=== PATIENT | female | born 1985 | race American Indian/Alaskan Native ===

== ENCOUNTER 2016-12-05 18:42 | Emergency (ER) | payer SELFPAY ==
[2016-12-05 18:53] VITALS: BP 154/91
[2016-12-05] MEDS ORDERED: TORADOL IM ONE (21:42)
--- NOTE | 2016-12-05 21:48 | Emergency Department Report ---
ED Lower Extremity HPI - General Chief Complaint: Extremity Injury, Lower Stated Complaint: PAIN/HIP PAIN Time Seen by Provider: 12/05/16 21:36 Source: patient Mode of arrival: Ambulatory Limitations: No Limitations - History of Present Illness Complaint: hip injury, other (pain no injury no fall injury or trauma ) -: Sudden, week(s) Time: 02:00 Injury: Hip: Left Type of Injury: other (none) Place: home Severity: moderate Severity scale (0 -10): 4 Improves With: nothing Worsens With: movement, palpation Context: other (none) Other Symptoms: loss of consciousness Associated Symptoms: ambulatory. denies: snap/pop sensation, swelling, numbness , tingling Treatments Prior to Arrival: other (none) - Related Data Previous Rx's Medication Instructions Recorded Last Taken Type Docusate Sodium [Colace] 100 mg PO BID PRN #60 capsule 08/27/16 Unknown Rx Ferrous Sulfate [Feosol 325 MG tab] 325 mg PO BID #60 tablet 08/27/16 Unknown Rx Cyclobenzaprine [Flexeril] 10 mg PO TID PRN #30 tablet 12/05/16 Unknown Rx Naproxen [Naprosyn TAB] 500 mg PO BID PRN #30 tablet 12/05/16 Unknown Rx Allergies Allergy/AdvReac Type Severity Reaction Status Date / Time No Known Allergies Allergy Unverified 08/26/16 13:10 ED Review of Systems ROS: Stated complaint: PAIN/HIP PAIN Other details as noted in HPI Constitutional: denies: chills, fever Eyes: denies: eye pain, eye discharge, vision change ENT: denies: ear pain, throat pain Respiratory: denies: cough, shortness of breath, wheezing Cardiovascular: denies: chest pain, palpitations Endocrine: no symptoms reported Gastrointestinal: denies: abdominal pain, nausea, diarrhea Genitourinary: denies: urgency, dysuria, discharge Musculoskeletal: arthralgia, myalgia. denies: back pain, joint swelling Skin: denies: rash, lesions Neurological: denies: headache, weakness, numbness, paresthesias, abnormal gait Psychiatric: anxiety. denies: depression, auditory hallucinations, visual hallucinations, homicidal thoughts, suicidal thoughts Hematological/Lymphatic: denies: easy bleeding, easy bruising ED Past Medical Hx - Past Medical History Previous Medical History?: No Hx Sickle Cell Disease: No Hx HIV: No Additional medical history: Eczema - Surgical History Past Surgical History?: Yes Additional Surgical History: TONSILLECTOMY - Social History Smoking Status: Never Smoker Substance Use Type: Non Opiate Pain - Medications Home Medications: Home Medications Medication Instructions Recorded Confirmed Last Taken Type Docusate Sodium [Colace] 100 mg PO BID PRN #60 capsule 08/27/16 Unknown Rx Ferrous Sulfate [Feosol 325 MG tab] 325 mg PO BID #60 tablet 08/27/16 Unknown Rx Cyclobenzaprine [Flexeril] 10 mg PO TID PRN #30 tablet 12/05/16 Unknown Rx Naproxen [Naprosyn TAB] 500 mg PO BID PRN #30 tablet 12/05/16 Unknown Rx ED Physical Exam - General Limitations: No Limitations General appearance: alert, in no apparent distress - Head Head exam: Present: atraumatic, normocephalic - Eye Eye exam: Present: normal appearance - ENT ENT exam: Present: mucous membranes moist - Neck Neck exam: Present: normal inspection - Respiratory Respiratory exam: Present: normal lung sounds bilaterally. Absent: respiratory distress - Cardiovascular Cardiovascular Exam: Present: regular rate, normal rhythm. Absent: systolic murmur, diastolic murmur, rubs, gallop - GI/Abdominal GI/Abdominal exam: Present: soft, normal bowel sounds - Rectal Rectal exam: Present: deferred - Expanded Lower Extremity Exam Left Hip exam: Present: full ROM, tenderness (left lateral hip to deep palpation ), external rotation (without pain ), internal rotation. Absent: swelling, abrasion, laceration, ecchymosis, deformity, crepidus, dislocation, erythema, shortening, pelvic stability Upper Leg exam: Present: normal inspection, full ROM. Absent: tenderness, swelling, abrasion, laceration, ecchymosis, deformity, crepidus, dislocation, erythema Knee exam: Present: normal inspection Lower Leg exam: Present: normal inspection Ankle exam: Present: normal inspection Foot/Toe exam: Present: normal inspection Neuro vascular tendon exam: Present: no vascular compromise. Absent: pulse deficit, abnormal cap refill, motor deficit, sensory deficit, tendon deficit, extremity cold to touch, pallor Gait: Positive: observed and normal - Back Exam Back exam: Present: normal inspection, full ROM. Absent: tenderness, CVA tenderness (R), CVA tenderness (L), muscle spasm, paraspinal tenderness, vertebral tenderness - Neurological Exam Neurological exam: Present: alert, oriented X3 - Psychiatric Psychiatric exam: Present: normal affect, normal mood, anxious. Absent: depressed, agitated, homicidal ideation, suicidal ideation - Skin Skin exam: Present: warm, dry, intact, normal color. Absent: rash ED Course Vital Signs 12/05/16 18:49 Temperature 98.7 F Pulse Rate 117 H Respiratory 20 Rate Blood Pressure 154/91 O2 Sat by Pulse 100 Oximetry ED Lower Extremity MDM - Medical Decision Making pt is a 31 y/o aaf with hx of obesity and stated htn, pt is not taking otc nsaids or pain relievers pt endorse acute on chronic left lateral hip pain x 2 weeks pain described as 4/10 aching exacerbated by prolong standing and walking pt denies weakness no numbness no decreased rom, pt denies fall injury or trauma , exam as noted , no weaknes no numbness no tingling no saddle numbness no decrease or loss in bladder or bowel control, no dysuria no urgency no no frequency no fever no chills , there is no deformity pt is ambulatory gait is steady at this time, pt endorses Im stressed out about trying to find work, pt given nsaid Im, plan naproxen bid prn pain , flexeril prn spams , hip exercises as directed , pt will follow up with primary care if problem persists Critical care attestation.: If time is entered above; I have spent that time in minutes in the direct care of this critically ill patient, excluding procedure time. ED Disposition Clinical Impression: Musculoskeletal pain of left lower extremity, Hip pain, left Disposition: TO HOME OR SELFCARE Is pt being admited?: No Does the pt Need Aspirin: No Condition: Good Instructions: Arthralgia (ED) Additional Instructions: hip exercises as directed Prescriptions: Cyclobenzaprine [Flexeril] 10 mg PO TID PRN #30 tablet PRN Reason: Muscle Spasm Naproxen [Naprosyn TAB] 500 mg PO BID PRN #30 tablet PRN Reason: Pain Forms: Work/School Release Form(ED) Time of Disposition: 21:54
== END 2016-12-05 22:28 | disposition home or self-care (01) ==
LOC: ED 18:42
DX: M25.552 Pain in left hip (principal)
CPT/HCPCS: 96372; 99282; J1885

== ENCOUNTER 2017-02-19 20:17 | Emergency (ER) | payer SELFPAY ==
[2017-02-19] MEDS ORDERED: CATAPRES PO ONE (20:59)
[2017-02-19] MEDS ORDERED: CATAPRES ONE (21:01)
[2017-02-19 22:06] VITALS: BP 156/100
--- NOTE | 2017-02-20 01:10 | Emergency Department Report ---
ED Upper Extremity Inj HPI - General Chief Complaint: Extremity Injury, Upper Stated Complaint: PAIN IN HANDS Time Seen by Provider: 02/20/17 00:59 Source: patient Mode of arrival: Ambulatory Limitations: No Limitations - History of Present Illness Initial Comments: This is a 31-year-old female nontoxic, well nourished in appearance, no acute signs of distress presents to the ED complaining of bilateral hand pain and stiffness intermittently 3 months. Patient stated she was recently diagnosed with arthritis of bilateral hands has been treated with naproxen and Flexeril and stated since has subsided but has recurred today. Patient denies any trauma , numbness, tingling, swelling, chest pain, shortness of breath, fever, chills, headache, stiff neck, nausea or vomiting. He denies any allergies or past medical history. Patient stated she does not follow up with a primary care doctor about her blood pressure but states she is aware of her high blood pressure. Pt deneis headache, blurry vision, drooling, visual changes, dizziness. MD Complaint: Injury to:: left, right, hand -: Gradual, month(s) (3) Other Injuries: none Severity scale (0 -10): 7 Improves With: none Worsens With: none Associated Symptoms: denies other symptoms. denies: weakness, numbness, neck pain, suspects foreign body, nausea/vomiting, heard/felt popping sensat - Related Data Previous Rx's Medication Instructions Recorded Last Taken Type Docusate Sodium [Colace] 100 mg PO BID PRN #60 capsule 08/27/16 Unknown Rx Ferrous Sulfate [Feosol 325 MG tab] 325 mg PO BID #60 tablet 08/27/16 Unknown Rx Cyclobenzaprine [Flexeril] 10 mg PO TID PRN #30 tablet 12/05/16 Unknown Rx Naproxen [Naprosyn TAB] 500 mg PO BID PRN #30 tablet 12/05/16 Unknown Rx Cyclobenzaprine [Flexeril] 10 mg PO TID PRN #15 tablet 02/20/17 Unknown Rx Hydrochlorothiazide [HCTZ] 25 mg PO QDAY #30 tablet 02/20/17 Unknown Rx Naproxen [Naprosyn TAB] 500 mg PO BID #30 tablet 02/20/17 Unknown Rx Allergies Allergy/AdvReac Type Severity Reaction Status Date / Time No Known Allergies Allergy Unverified 08/26/16 13:10 ED Review of Systems ROS: Stated complaint: PAIN IN HANDS Other details as noted in HPI Constitutional: denies: chills, fever Eyes: denies: eye pain, eye discharge, vision change ENT: denies: ear pain, throat pain Respiratory: denies: cough, shortness of breath, wheezing Cardiovascular: denies: chest pain, palpitations Endocrine: no symptoms reported Gastrointestinal: denies: abdominal pain, nausea, diarrhea Genitourinary: denies: urgency, dysuria, discharge Musculoskeletal: denies: back pain, joint swelling, arthralgia Skin: denies: rash, lesions Neurological: denies: headache, weakness, paresthesias Psychiatric: denies: anxiety, depression Hematological/Lymphatic: denies: easy bleeding, easy bruising ED Past Medical Hx - Past Medical History Hx Sickle Cell Disease: No Hx Arthritis: Yes (HANDS) Hx HIV: No Additional medical history: Eczema - Surgical History Additional Surgical History: TONSILLECTOMY - Social History Smoking Status: Never Smoker Substance Use Type: None, Alcohol - Medications Home Medications: Home Medications Medication Instructions Recorded Confirmed Last Taken Type Docusate Sodium [Colace] 100 mg PO BID PRN #60 capsule 08/27/16 Unknown Rx Ferrous Sulfate [Feosol 325 MG tab] 325 mg PO BID #60 tablet 08/27/16 Unknown Rx Cyclobenzaprine [Flexeril] 10 mg PO TID PRN #30 tablet 12/05/16 Unknown Rx Naproxen [Naprosyn TAB] 500 mg PO BID PRN #30 tablet 12/05/16 Unknown Rx Cyclobenzaprine [Flexeril] 10 mg PO TID PRN #15 tablet 02/20/17 Unknown Rx Hydrochlorothiazide [HCTZ] 25 mg PO QDAY #30 tablet 02/20/17 Unknown Rx Naproxen [Naprosyn TAB] 500 mg PO BID #30 tablet 02/20/17 Unknown Rx ED Physical Exam - General Limitations: No Limitations General appearance: alert, in no apparent distress - Head Head exam: Present: atraumatic, normocephalic, normal inspection - Eye Eye exam: Present: normal appearance, PERRL, EOMI. Absent: scleral icterus, conjunctival injection, nystagmus, periorbital swelling, periorbital tenderness Pupils: Present: normal accommodation - ENT ENT exam: Present: normal exam, normal orophraynx, mucous membranes moist, TM's normal bilaterally, normal external ear exam - Neck Neck exam: Present: normal inspection, full ROM. Absent: tenderness, meningismus, lymphadenopathy, thyromegaly - Respiratory Respiratory exam: Present: normal lung sounds bilaterally. Absent: respiratory distress, wheezes, rales, rhonchi, stridor, chest wall tenderness, accessory muscle use, decreased breath sounds, prolonged expiratory - Cardiovascular Cardiovascular Exam: Present: regular rate, normal rhythm. Absent: systolic murmur, diastolic murmur, rubs, gallop - GI/Abdominal GI/Abdominal exam: Present: soft, normal bowel sounds. Absent: distended, tenderness, guarding, rebound, rigid, diminished bowel sounds - Rectal Rectal exam: Present: deferred - Extremities Exam Extremities exam: Present: normal inspection, full ROM, normal capillary refill. Absent: tenderness, pedal edema, joint swelling, calf tenderness - Expanded Upper Extremity Exam Left General: Present: normal inspection (bilateral examination) Shoulder Exam: Present: normal inspection (bilateral examination), full ROM Upper Arm exam: Present: normal inspection (bilateral examination), full ROM Elbow exam: Present: normal inspection (bilateral examination), full ROM Forearm Wrist exam: Present: normal inspection (bilateral examination), full ROM Hand Wrist exam: Present: normal inspection (bilateral examination), full ROM, tenderness, other (stiffness). Absent: swelling, abrasion, laceration, ecchymosis, deformity, crepidus, dislocation, erythema, amputation, nail avulsion, subungual hematoma Neuro motor exam: Present: wrist extension intact, thumb opposition intact, thumb IP flexion intact, thumb adduction intact, fingers 2-5 abduction intact Neurosensory exam: Present: 2-point discrimination, radial nerve intact, ulnar nerve intact, median nerve intact Vascular: Present: vascular compromise, normal capillary refill, radial pulse, brachial pulse, ulnar pulse - Back Exam Back exam: Present: normal inspection, full ROM. Absent: tenderness, CVA tenderness (R), CVA tenderness (L), muscle spasm, paraspinal tenderness, vertebral tenderness, rash noted - Neurological Exam Neurological exam: Present: alert, oriented X3, CN II-XII intact, normal gait, reflexes normal - Psychiatric Psychiatric exam: Present: normal affect, normal mood - Skin Skin exam: Present: warm, dry, intact, normal color. Absent: rash ED Course Vital Signs 02/19/17 02/19/17 02/19/17 20:51 21:00 22:04 Temperature 97.8 F Pulse Rate 104 H 104 H 94 H Respiratory 18 18 Rate Blood Pressure 195/125 195/125 156/100 O2 Sat by Pulse 100 100 Oximetry - Reevaluation(s) Reevaluation #1: 02/20/17 01:12 Patient is speaking full sentences with no signs of distress. Reevaluation #2: 02/20/17 01:12 Blood pressure decreased post treatment in the ED ED Medical Decision Making - Medical Decision Making 31y/o female presents with bilateral arthritic pain. Patient is stable. Patient examined myself. Patient received Catapres 0.1 mg for hypertension which decreased in the ED. Patient was educated on low-sodium diet. Patient notified follow-up with her primary care doctor in 24 hours for her elevated blood pressure or symptoms such as headache, blurred vision, or any abnormal symptoms return to emergency room as soon as possible. I will start patient with a HCTZ 25 mg. Patient received ibuprofen 800 mg by mouth in the ED. patient with also discharged with naproxen and Flexeril to the stating that symptoms have significantly subsided. Patient also notified to keep a diary log of blood pressure. At time time of discharge, the patient does not seem toxic or ill in appearance. No acute signs of distress noted. Patient agrees to discharge treatment plan of care. No further questions noted by the patient. Patient was notified to follow up with orthopedic doctor in 3-5 days. Critical care attestation.: If time is entered above; I have spent that time in minutes in the direct care of this critically ill patient, excluding procedure time. ED Disposition Clinical Impression: Arthritis Hypertension Qualifiers: Hypertension type: unspecified Qualified Code(s): I10 - Essential (primary) hypertension Arthralgia Qualifiers: Joint pain location: hand Laterality: bilateral Qualified Code(s): M25.541 - Pain in joints of right hand Disposition: DC-01 TO HOME OR SELFCARE Is pt being admited?: No Does the pt Need Aspirin: No Condition: Stable Instructions: Naproxen (By mouth), Cyclobenzaprine (By mouth), Low Sodium Diet (ED), Hypertension (ED) Additional Instructions: follow-up with a primary care doctor in 24 hours for her elevated blood pressure or symptoms such as headache, blurred vision, or any abnormal symptoms return to emergency room as soon as possible. Follow-up with a orthopedic doctor in 3-5 days. Keep a daily diary of blood pressure. Take naproxen and Flexeril as prescribed. Do not operate heavy machinery while taking Flexeril due to sedation Prescriptions: Cyclobenzaprine [Flexeril] 10 mg PO TID PRN #15 tablet PRN Reason: Muscle Spasm Hydrochlorothiazide [HCTZ] 25 mg PO QDAY #30 tablet Naproxen [Naprosyn TAB] 500 mg PO BID #30 tablet Referrals: LA BAILEY MD [Staff Physician] - 3-5 Days [facility] [Outside] - 3-5 Days [facility] [Outside] - 3-5 Days PRIMARY CAREMD [Primary Care Provider] - 24 Hours RODRIGUE SLATER MD [Staff Physician] - 24 Hours Forms: Work/School Release Form(ED)
[2017-02-20] MEDS ORDERED: MOTRIN PO ONE (01:12)
== END 2017-02-20 01:57 | disposition home or self-care (01) ==
LOC: ED 20:17
DX: M25.541 Pain in joints of right hand (principal); M19.90 Unspecified osteoarthritis, unspecified site; I10 Essential (primary) hypertension; Z90.89 Acquired absence of other organs
CPT/HCPCS: 99282

== ENCOUNTER 2017-06-18 19:34 | Emergency (ER) | payer OTHER ==
[2017-06-18 20:57] VITALS: BP 145/96
[2017-06-18 21:40] LABS: Basophils # (Auto) 0.1 K/mm3 (0.0-0.1); Basophils % (Auto) 0.4 % (0.0-1.8); Eosinophils # (Auto) 1.1 K/mm3 (0.0-0.4); Eosinophils % (Auto) 6.2 % (0.0-4.3); Hematocrit 26.9 % (30.3-42.9); Lymphocytes # (Auto) 2.6 K/mm3 (1.2-5.4); Lymphocytes % (Auto) 14.6 % (13.4-35.0); Mean Corpuscular HGB Conc 30 % (30-34); Monocytes # (Auto) 0.8 K/mm3 (0.0-0.8); Monocytes % (Auto) 4.7 % (0.0-7.3); Platelet Count 340 K/mm3 (140-440); Red Blood Count 4.25 M/mm3 (3.65-5.03)
[2017-06-18 21:42] LABS: Mean Corpuscular Hemoglobin 19 pg (28-32); Mean Corpuscular Volume 63 fl (79-97); Red Cell Distribution Width 22.4 % (13.2-15.2)
[2017-06-19 00:43] LABS: Bacteria,Urine 1+ /HPF (Negative); Bilirubin,Urine NEG (Negative); Blood,Urine LG (Negative); Color,Urine Red (Yellow); Mucus,Urine FEW /HPF; Nitrite,Urine NEG (Negative); Urobilinogen,Urine < 2.0 mg/dL (<2.0)
[2017-06-19 00:45] LABS: RBC,Urine > 182.0 /HPF (0.0-6.0)
== END 2017-06-19 04:30 | disposition left against medical advice (07) ==
LOC: ED 19:34
DX: Z53.21 Procedure and treatment not carried out due to patient leaving prior to being seen by health care provider (principal)
CPT/HCPCS: 36415; 81001; 85025; 86850; 86900; 86901

== ENCOUNTER 2017-06-19 20:47 | Emergency (ER) | payer OTHER ==
[2017-06-19 22:22] LABS: Mean Corpuscular HGB Conc 29 % (30-34); Platelet Count 362 K/mm3 (140-440); Red Blood Count 4.37 M/mm3 (3.65-5.03)
[2017-06-19 22:24] LABS: Hematocrit 27.7 % (30.3-42.9); Hemoglobin 8.1 gm/dl (10.1-14.3); Mean Corpuscular Hemoglobin 19 pg (28-32); Mean Corpuscular Volume 63 fl (79-97); Red Cell Distribution Width 22.8 % (13.2-15.2)
--- NOTE | 2017-06-20 06:35 | Emergency Department Report ---
HPI - General Chief Complaint: Vaginal Bleeding Time Seen by Provider: 06/20/17 06:12 - HPI HPI: 31-year-old female presents to the emergency department with complaint of a one-month history of vaginal bleeding. She has some lower abdominal and/or pelvic discomfort. The patient says that she has a history of irregular menstrual cycles. Sometimes she will miss one and then other times it will last for a month or so. Currently she says it is a moderate amount of bleeding and that she goes through 1.5 packs of pads a week. She does not have an CASE PICKER. Patient does have a history of heavy vaginal bleeding leading to anemia and transfusion in the past. No recent travel or sick contacts at home. She denies any dysuria, vaginal discharge, back pain, fever, nausea or vomiting. She has not taken anything for her symptoms prior to presentation. ED Past Medical Hx - Past Medical History Hx Sickle Cell Disease: No Hx Arthritis: Yes (HANDS) Hx HIV: No Additional medical history: Eczema - Surgical History Additional Surgical History: TONSILLECTOMY - Social History Smoking Status: Current Every Day Smoker Substance Use Type: None - Medications Home Medications: Home Medications Medication Instructions Recorded Confirmed Last Taken Type Docusate Sodium [Colace] 100 mg PO BID PRN #60 capsule 08/27/16 Unknown Rx Cyclobenzaprine [Flexeril] 10 mg PO TID PRN #30 tablet 12/05/16 Unknown Rx Naproxen [Naprosyn TAB] 500 mg PO BID PRN #30 tablet 12/05/16 Unknown Rx Cyclobenzaprine [Flexeril] 10 mg PO TID PRN #15 tablet 02/20/17 Unknown Rx Hydrochlorothiazide [HCTZ] 25 mg PO QDAY #30 tablet 02/20/17 Unknown Rx Naproxen [Naprosyn TAB] 500 mg PO BID #30 tablet 02/20/17 Unknown Rx Ferrous Sulfate [Feosol 325 MG tab] 325 mg PO BID #60 tablet 06/20/17 Unknown Rx traMADol [Ultram 50 MG tab] 50 mg PO Q6HR PRN #10 tablet 06/20/17 Unknown Rx ED Review of Systems ROS: Stated complaint: VAG BLEED Other details as noted in HPI Comment: All other systems reviewed and negative Constitutional: denies: chills, fever Eyes: denies: eye pain, eye discharge, vision change ENT: denies: ear pain, throat pain Respiratory: denies: cough, shortness of breath, wheezing Cardiovascular: denies: chest pain, palpitations Gastrointestinal: abdominal pain. denies: nausea, vomiting Genitourinary: other (vaginal bleeding). denies: urgency, dysuria, discharge Musculoskeletal: denies: back pain, joint swelling, arthralgia Skin: denies: rash, lesions Neurological: denies: headache, weakness, paresthesias Physical Exam - Physical Exam Vital Signs: Vital Signs 06/19/17 06/20/17 06/20/17 21:13 03:34 06:17 Temperature 98.2 F 98.6 F 98.4 F Pulse Rate 94 H 86 88 Respiratory 16 16 16 Rate Blood Pressure 169/100 196/113 Blood Pressure 154/97 [Right] O2 Sat by Pulse 99 99 97 Oximetry Physical Exam: GENERAL: The patient is well-developed well-nourished. HENT: Normocephalic. Atraumatic. Patient has moist mucous membranes. EYES: Extraocular motions are intact. Pupils equal reactive to light bilaterally. NECK: Supple. Trachea is midline. CHEST/LUNGS: Clear to auscultation. There is no respiratory distress noted. HEART/CARDIOVASCULAR: Regular. There is no tachycardia. There is no murmur. ABDOMEN: Abdomen is soft, nontender. Patient has normal bowel sounds. There is no abdominal distention. SKIN: Skin is warm and dry. NEURO: The patient is awake, alert, and oriented. The patient is cooperative. The patient has no focal neurologic deficits. The patient has normal speech. MUSCULOSKELETAL: There is no tenderness or deformity. There is no limitation range of motion. There is no evidence of acute injury. ED Course Vital Signs 06/19/17 06/20/17 06/20/17 21:13 03:34 06:17 Temperature 98.2 F 98.6 F 98.4 F Pulse Rate 94 H 86 88 Respiratory 16 16 16 Rate Blood Pressure 169/100 196/113 Blood Pressure 154/97 [Right] O2 Sat by Pulse 99 99 97 Oximetry ED Medical Decision Making - Lab Data Result diagrams: 06/19/17 21:41 06/20/17 07:33 - Radiology Data Radiology results: report reviewed, image reviewed interpreted by me: Abdominal x-ray shows nonspecific nonobstructive bowel gas. ULTRASOUND PELVIC DUPLEX DOPPLER COMPLETE ULTRASOUND TRANSVAGINAL HISTORY: Pain, dysfunctional vaginal bleeding. COMPARISON: 08/26/16. TECHNIQUE: Transabdominal and transvaginal ultrasound with color doppler interrogation. FINDINGS: Uterus: The uterus is anteverted. The uterus measures 8.2 x 4.2 x 5.5 cm. No uterine fibroid disease is detected. The cervix is unremarkable. Endometrium: The endometrium remains mildly thickened and heterogeneous measuring 16.2 mm in thickness. The junctional zone appears prominent. There is no obvious endometrial fluid, cystic change or mass. This could be a manifestation of endometrial hyperplasia or adenomyosis. Right ovary: 3.3 x 2.5 x 2.1 cm. No focal abnormality. Left ovary: 3.1 x 3.2 x 2.1 cm. No focal abnormality. No pelvic fluid or mass is identified. Spectral Doppler waveforms demonstrate arterial flow to both ovaries. IMPRESSION: Slightly thickened and complex endometrium as outlined above. Consider endometrial hyperplasia or adenomyosis. Transcribed By: TTR Dictated By: AMBER HUANG JR, MD Electronically Authenticated By: AMBER HUANG JR, MD Signed Date/Time: 06/20/17 0758 - Medical Decision Making 31-year-old female presents with a one-month history of some abnormal vaginal bleeding. She also has some lower abdominal and/or pelvic discomfort. Ultrasound shows some endometrial hyperplasia but otherwise no other acute process. Abdominal x-ray is unremarkable. Labs show some anemia with hemoglobin of 8.1 but she also had some blood work done yesterday and the hemoglobin yesterday was 8, showing that it has remained steady. She is supposed to be on iron pills but does not take them. Vital signs stable throughout ED course. She does not appear to have any signs of symptomatic anemia at this time. She was given some pain medication, iron supplementation pills and multiple referrals for CASE PICKER. She will return to the ER with any worsening of her symptoms or any acute distress. - Differential Diagnosis endometrial hyperplasia, fibroids, malignancy, Critical Care Time: No Critical care attestation.: If time is entered above; I have spent that time in minutes in the direct care of this critically ill patient, excluding procedure time. ED Disposition Clinical Impression: Vaginal bleeding, Dysfunctional uterine bleeding, Abdominal pain Disposition: TO HOME OR SELFCARE Is pt being admited?: No Condition: Stable Instructions: Dysfunctional Uterine Bleeding (ED), Abdominal Pain (ED) Additional Instructions: Please follow up with a primary care physician. Please follow up with an [facility]/ [facility] service as soon as possible. Return to the emergency Department with any worsening of your symptoms or any acute distress. You have been prescribed a medication that is sedating and therefore should not be taken prior to driving, working, and responsible for children and in no way should be mixed with alcohol of any quantity. Prescriptions: Ferrous Sulfate [Feosol 325 MG tab] 325 mg PO BID #60 tablet traMADol [Ultram 50 MG tab] 50 mg PO Q6HR PRN #10 tablet PRN Reason: Pain Referrals: PRIMARY CARE, [Primary Care Provider] - 3-5 Days [facility] [Provider Group] - [facility]Provider Group] - [facility]Provider [facility]] - [facility] Forms: Work/School Release Form(ED) Time of Disposition: 09:27
[2017-06-20 08:01] LABS: Alanine Aminotransferase 9 units/L (7-56); Albumin 3.7 g/dL (3.9-5); BUN/Creatinine Ratio 13; Blood Urea Nitrogen 8 mg/dL (7-17); Calcium 9.1 mg/dL (8.4-10.2); Hemolysis Index 1
[2017-06-20 08:02] LABS: INR 0.94 (0.87-1.13)
[2017-06-20 08:03] LABS: Partial Thromboplastin Time 33.6 Sec. (24.2-36.6)
--- NOTE | 2017-06-20 08:03 | Ultrasound Report ---
ULTRASOUND PELVIC DUPLEX DOPPLER COMPLETE ULTRASOUND TRANSVAGINAL HISTORY: Pain, dysfunctional vaginal bleeding. COMPARISON: 08/26/16. TECHNIQUE: Transabdominal and transvaginal ultrasound with color doppler interrogation. FINDINGS: Uterus: The uterus is anteverted. The uterus measures 8.2 x 4.2 x 5.5 cm. No uterine fibroid disease is detected. The cervix is unremarkable. Endometrium: The endometrium remains mildly thickened and heterogeneous measuring 16.2 mm in thickness. The junctional zone appears prominent. There is no obvious endometrial fluid, cystic change or mass. This could be a manifestation of endometrial hyperplasia or adenomyosis. Right ovary: 3.3 x 2.5 x 2.1 cm. No focal abnormality. Left ovary: 3.1 x 3.2 x 2.1 cm. No focal abnormality. No pelvic fluid or mass is identified. Spectral Doppler waveforms demonstrate arterial flow to both ovaries. IMPRESSION: Slightly thickened and complex endometrium as outlined above. Consider endometrial hyperplasia or adenomyosis.
--- NOTE | 2017-06-20 08:33 | XRay Report ---
ABDOMEN, 2 views: History: Abdominal pain. No comparison. There are 1 or 2 slightly prominent gas-filled loops of small bowel in left upper quadrant. This could represent a mild focal ileus. The remainder of the bowel gas pattern is within normal limits. No pathologic calcifications are identified. Normal stool in the colon. The lung bases are clear. IMPRESSION: No acute abdominal process.
[2017-06-20 09:17] LABS: Bacteria,Urine 1+ /HPF (Negative); Bilirubin,Urine NEG (Negative); Blood,Urine LG (Negative); Color,Urine Red (Yellow); Nitrite,Urine NEG (Negative); Urobilinogen,Urine < 2.0 mg/dL (<2.0)
[2017-06-20 09:18] LABS: RBC,Urine > 182.0 /HPF (0.0-6.0); WBC,Urine < 1.0 /HPF (0.0-6.0)
[2017-06-20 09:49] VITALS: BP 146/89
== END 2017-06-20 09:52 | disposition home or self-care (01) ==
LOC: ED 20:47
DX: N93.8 Other specified abnormal uterine and vaginal bleeding (principal); M19.90 Unspecified osteoarthritis, unspecified site; F17.200 Nicotine dependence, unspecified, uncomplicated
CPT/HCPCS: 36415; 74020; 76830; 80053; 81001; 84702; 85025; 85610; 85730; 86850; 86900; 86901; 93975; 99284

== ENCOUNTER 2018-12-26 19:18 | Emergency (ER) | payer OTHER ==
[2018-12-26 21:08] LABS: Basophils % (Auto) 0.3 % (0.0-1.8); Eosinophils % (Auto) 6.6 % (0.0-4.3); Hematocrit 20.5 % (30.3-42.9); Hemoglobin 6.4 gm/dl (10.1-14.3); Lymphocytes # (Auto) 2.5 K/mm3 (1.2-5.4); Lymphocytes % (Auto) 16.7 % (13.4-35.0); Mean Corpuscular HGB Conc 31 % (30-34); Monocytes # (Auto) 0.9 K/mm3 (0.0-0.8); Monocytes % (Auto) 5.9 % (0.0-7.3); Platelet Count 320 K/mm3 (140-440); Red Blood Count 2.94 M/mm3 (3.65-5.03); Red Cell Distribution Width 18.6 % (13.2-15.2)
[2018-12-26 21:14] LABS: Bilirubin,Urine NEG (Negative); Blood,Urine LG (Negative); Color,Urine Yellow (Yellow); Urobilinogen,Urine < 2.0 mg/dL (<2.0)
[2018-12-26 21:18] LABS: Protein,Urine >500 mg/dL (Negative)
[2018-12-26 21:18] LABS: Mean Corpuscular Volume 70 fl (79-97)
[2018-12-26 21:22] LABS: RBC,Urine > 182.0 /HPF (0.0-6.0); WBC,Urine > 182.0 /HPF (0.0-6.0)
[2018-12-26 21:25] LABS: Alanine Aminotransferase 10 units/L (7-56); Albumin 3.7 g/dL (3.9-5); BUN/Creatinine Ratio 10; Blood Urea Nitrogen 7 mg/dL (7-17); Calcium 9.1 mg/dL (8.4-10.2); Hemolysis Index 0
[2018-12-26] MEDS ORDERED: NACL 0.9% 500 ML 500 ML IV ONE (22:04)
[2018-12-26] MEDS ORDERED: MACROBID PO ONE (22:13)
[2018-12-26 22:31] LABS: HCG Qualitative,Urine Negative (Negative)
--- NOTE | 2018-12-26 22:36 | Emergency Department Report ---
ED Female HPI - General Chief complaint: Vaginal Bleeding Stated complaint: VAGINAL BLEEDING/LIGHTHEADED Time Seen by Provider: 12/26/18 21:59 Source: patient, old records reviewed Mode of arrival: Ambulatory Limitations: No Limitations - History of Present Illness Initial comments: 33-year-old female with a past medical history eczema and previous menorrhagia requiring blood transfusion presents to the hospital complains of lightheadedness and vaginal bleeding 2 months. Patient using greater than 6 pads per day. She denies pain. She only felt lightheaded when she gets hot and she denies syncope, dyspnea on exertion, chest pain, or abdominal pain. She was admitted here in 2017 for similar symptoms requiring a blood transfusion. Ultrasound performed on 06/20/2017 shows a slightly thickened complex endometrium and to consider endometrial hyperplasia or adenomyosis. Patient states she has been told that her bleeding is due to "hormone imbalance". She does not currently have a [employer] doctor, Mohsen currently on hormone therapy, and she is not currently taking iron tablets - Related Data Previous Rx's Medication Instructions Recorded Last Taken Type Cyclobenzaprine [Flexeril] 10 mg PO TID PRN #30 tablet 12/05/16 Unknown Rx Naproxen [Naprosyn TAB] 500 mg PO BID PRN #30 tablet 12/05/16 Unknown Rx Cyclobenzaprine [Flexeril] 10 mg PO TID PRN #15 tablet 02/20/17 Unknown Rx Naproxen [Naprosyn TAB] 500 mg PO BID #30 tablet 02/20/17 Unknown Rx hydroCHLOROthiazide [HCTZ] 25 mg PO QDAY #30 tablet 02/20/17 Unknown Rx traMADol [Ultram 50 MG tab] 50 mg PO Q6HR PRN #10 tablet 06/20/17 Unknown Rx Docusate Sodium [Colace CAP] 100 mg PO BID PRN #30 capsule 12/27/18 Unknown Rx Ferrous Sulfate [Feosol 325 MG tab] 325 mg PO DAILY #30 tablet 12/27/18 Unknown Rx Ibuprofen [Motrin] 800 mg PO Q8HR PRN #30 tablet 12/27/18 Unknown Rx Nitrofurantoin [place]/M-Cryst 100 mg PO Q12HR #10 capsule 12/27/18 Unknown Rx [Macrobid CAP] medroxyPROGESTERone ACETATE 10 mg PO DAILY #10 tablet 12/27/18 Unknown Rx [Provera] Allergies Allergy/AdvReac Type Severity Reaction Status Date / Time No Known Allergies Allergy Verified 06/19/17 21:13 ED Review of Systems ROS: Stated complaint: VAGINAL BLEEDING/LIGHTHEADED Other details as noted in HPI Comment: All other systems reviewed and negative ED Past Medical Hx - Past Medical History Hx Sickle Cell Disease: No Hx Arthritis: Yes (HANDS) Hx HIV: No Additional medical history: Eczema - Surgical History Additional Surgical History: TONSILLECTOMY - Social History Smoking Status: Current Some Day Smoker - Medications Home Medications: Home Medications Medication Instructions Recorded Confirmed Last Taken Type Cyclobenzaprine [Flexeril] 10 mg PO TID PRN #30 tablet 12/05/16 Unknown Rx Naproxen [Naprosyn TAB] 500 mg PO BID PRN #30 tablet 12/05/16 Unknown Rx Cyclobenzaprine [Flexeril] 10 mg PO TID PRN #15 tablet 02/20/17 Unknown Rx Naproxen [Naprosyn TAB] 500 mg PO BID #30 tablet 02/20/17 Unknown Rx hydroCHLOROthiazide [HCTZ] 25 mg PO QDAY #30 tablet 02/20/17 Unknown Rx traMADol [Ultram 50 MG tab] 50 mg PO Q6HR PRN #10 tablet 06/20/17 Unknown Rx Docusate Sodium [Colace CAP] 100 mg PO BID PRN #30 capsule 12/27/18 Unknown Rx Ferrous Sulfate [Feosol 325 MG tab] 325 mg PO DAILY #30 tablet 12/27/18 Unknown Rx Ibuprofen [Motrin] 800 mg PO Q8HR PRN #30 tablet 12/27/18 Unknown Rx Nitrofurantoin [place]/M-Cryst 100 mg PO Q12HR #10 capsule 12/27/18 Unknown Rx [Macrobid CAP] medroxyPROGESTERone ACETATE 10 mg PO DAILY #10 tablet 12/27/18 Unknown Rx [Provera] ED Physical Exam - General Limitations: No Limitations - Other Other exam information: General: No limitations, patient is alert in no acute distress Head exam: Atraumatic, normocephalic Eyes exam: Normal appearance ENT: Moist mucous membrane Neck exam: Normal inspection, full range of motion, no meningismus nontender Respiratory exam: Clear to auscultation bilateral, no wheezes, rales, crackles Cardiovascular: Normal rate and rhythm, normal heart sounds Abdomen: Soft, nondistended, and nontender, with normal bowel sounds, no rebound, or guarding Extremity: Full range of motion normal inspection no deformity Back: Normal Inspection, full range of motion, no tenderness Neurologic: Alert, oriented x3, cranial nerves intact, no motor or sensory deficit Psychiatric: normal affect, normal mood Skin: Warm, dry, intact ED Course Vital Signs 12/26/18 12/26/18 12/26/18 19:23 20:19 22:58 Temperature 98.2 F 98.2 F Pulse Rate 100 H Respiratory 18 18 Rate Blood Pressure 156/88 156/88 Blood Pressure [Left] O2 Sat by Pulse 99 100 Oximetry 12/26/18 12/26/18 12/26/18 23:00 23:15 23:31 Temperature Pulse Rate Respiratory Rate Blood Pressure 145/50 145/50 125/35 Blood Pressure [Left] O2 Sat by Pulse 100 100 100 Oximetry 12/26/18 12/26/18 12/26/18 23:43 23:45 23:46 Temperature Pulse Rate Respiratory Rate Blood Pressure 125/35 146/69 125/35 Blood Pressure [Left] O2 Sat by Pulse 100 100 100 Oximetry 12/27/18 12/27/18 12/27/18 00:00 00:01 00:15 Temperature Pulse Rate Respiratory Rate Blood Pressure 156/99 156/99 139/76 Blood Pressure [Left] O2 Sat by Pulse 100 100 100 Oximetry 12/27/18 12/27/18 12/27/18 00:30 00:45 01:00 Temperature Pulse Rate Respiratory Rate Blood Pressure 135/82 131/73 121/66 Blood Pressure [Left] O2 Sat by Pulse 96 96 100 Oximetry 12/27/18 12/27/18 12/27/18 01:15 01:31 01:45 Temperature Pulse Rate Respiratory Rate Blood Pressure 138/100 130/75 130/75 Blood Pressure [Left] O2 Sat by Pulse 100 100 100 Oximetry 12/27/18 12/27/18 12/27/18 02:00 02:15 02:30 Temperature Pulse Rate Respiratory Rate Blood Pressure 123/60 144/90 144/88 Blood Pressure [Left] O2 Sat by Pulse 100 100 100 Oximetry 12/27/18 12/27/18 12/27/18 02:45 03:01 03:15 Temperature 98.3 F Pulse Rate 81 Respiratory 18 Rate Blood Pressure 144/88 129/41 137/60 Blood Pressure 137/60 [Left] O2 Sat by Pulse 100 100 100 Oximetry 12/27/18 12/27/18 12/27/18 03:30 03:45 03:51 Temperature 98.4 F 98.5 F Pulse Rate 84 84 Respiratory 18 18 Rate Blood Pressure 135/88 135/88 133/55 Blood Pressure 133/55 [Left] O2 Sat by Pulse 100 100 100 Oximetry 12/27/18 12/27/18 12/27/18 04:00 04:11 04:21 Temperature Pulse Rate Respiratory Rate Blood Pressure 137/81 137/81 135/78 Blood Pressure [Left] O2 Sat by Pulse 100 100 99 Oximetry 12/27/18 12/27/18 12/27/18 04:31 04:41 04:51 Temperature Pulse Rate Respiratory Rate Blood Pressure 126/81 126/81 131/83 Blood Pressure [Left] O2 Sat by Pulse 100 99 100 Oximetry 12/27/18 12/27/18 12/27/18 05:00 05:11 05:21 Temperature Pulse Rate Respiratory Rate Blood Pressure 148/72 148/72 136/60 Blood Pressure [Left] O2 Sat by Pulse 100 100 100 Oximetry 12/27/18 12/27/18 05:31 05:40 Temperature Pulse Rate 83 79 Respiratory 21 17 Rate Blood Pressure 116/53 139/75 Blood Pressure [Left] O2 Sat by Pulse 90 100 Oximetry - Consultations Consultation #1: 12/26/18 22:14 Case discussed with on-call [employer] doctor Dr sen. Agree with transfusion and follow up. She will also be placed on iron tablets and Provera ED Medical Decision Making - Lab Data Result diagrams: 12/26/18 20:28 12/26/18 20:28 Lab Results 12/26/18 12/26/18 12/26/18 Range/Units 20:28 20:28 20:30 WBC 14.9 H (4.5-11.0) K/mm3 RBC 2.94 L (3.65-5.03) M/mm3 Hgb 6.4 L (10.1-14.3) gm/dl Hct 20.5 L (30.3-42.9) % MCV 70 L (79-97) fl MCH 22 L (28-32) pg MCHC 31 (30-34) % RDW 18.6 H (13.2-15.2) % Plt Count 320 (140-440) K/mm3 Lymph % (Auto) 16.7 (13.4-35.0) % [place] % (Auto) 5.9 (0.0-7.3) % Eos % (Auto) 6.6 H (0.0-4.3) % Baso % (Auto) 0.3 (0.0-1.8) % Lymph # 2.5 (1.2-5.4) K/mm3 [place] # 0.9 H (0.0-0.8) K/mm3 Eos # 1.0 H (0.0-0.4) K/mm3 Baso # 0.0 (0.0-0.1) K/mm3 Seg Neutrophils % 70.5 H (40.0-70.0) % Seg Neutrophils # 10.5 H (1.8-7.7) K/mm3 Sodium 137 (137-145) mmol/L Potassium 3.5 L (3.6-5.0) mmol/L Chloride 99.8 (98-107) mmol/L Carbon Dioxide 29 (22-30) mmol/L Anion Gap 12 mmol/L BUN 7 (7-17) mg/dL Creatinine 0.7 (0.7-1.2) mg/dL Estimated GFR > 60 ml/min BUN/Creatinine Ratio 10 % Glucose 97 (65-100) mg/dL Calcium 9.1 (8.4-10.2) mg/dL Total Bilirubin 0.20 (0.1-1.2) mg/dL AST 14 (5-40) units/L ALT 10 (7-56) units/L Alkaline Phosphatase 79 (35-129) units/L Total Protein 7.4 (6.3-8.2) g/dL Albumin 3.7 L (3.9-5) g/dL Albumin/Globulin Ratio 1.0 % Urine Color Yellow (Yellow) Urine Turbidity Turbid (Clear) Urine pH 6.0 (5.0-7.0) Ur Specific [place] 1.028 (1.003-1.030) Urine Protein >500 (Negative) mg/dL Urine Glucose (UA) 50 (Negative) mg/dL Urine Ketones Tr (Negative) mg/dL Urine Blood Lg (Negative) Urine Nitrite Pos (Negative) Urine Bilirubin Neg (Negative) Urine Urobilinogen < 2.0 (<2.0) mg/dL Ur Leukocyte Esterase Neg (Negative) Urine WBC (Auto) > 182.0 H (0.0-6.0) /HPF Urine RBC (Auto) > 182.0 (0.0-6.0) /HPF Urine Yeast (Budding) 3+ /HPF Urine HCG, Qual (Negative) Blood Type Antibody Screen Crossmatch 12/26/18 12/26/18 Range/Units 20:30 22:32 WBC (4.5-11.0) K/mm3 RBC (3.65-5.03) M/mm3 Hgb (10.1-14.3) gm/dl Hct (30.3-42.9) % MCV (79-97) fl MCH (28-32) pg MCHC (30-34) % RDW (13.2-15.2) % Plt Count (140-440) K/mm3 Lymph % (Auto) (13.4-35.0) % [place] % (Auto) (0.0-7.3) % Eos % (Auto) (0.0-4.3) % Baso % (Auto) (0.0-1.8) % Lymph # (1.2-5.4) K/mm3 [place] # (0.0-0.8) K/mm3 Eos # (0.0-0.4) K/mm3 Baso # (0.0-0.1) K/mm3 Seg Neutrophils % (40.0-70.0) % Seg Neutrophils # (1.8-7.7) K/mm3 Sodium (137-145) mmol/L Potassium (3.6-5.0) mmol/L Chloride (98-107) mmol/L Carbon Dioxide (22-30) mmol/L Anion Gap mmol/L BUN (7-17) mg/dL Creatinine (0.7-1.2) mg/dL Estimated GFR ml/min BUN/Creatinine Ratio % Glucose (65-100) mg/dL Calcium (8.4-10.2) mg/dL Total Bilirubin (0.1-1.2) mg/dL AST (5-40) units/L ALT (7-56) units/L Alkaline Phosphatase (35-129) units/L Total Protein (6.3-8.2) g/dL Albumin (3.9-5) g/dL Albumin/Globulin Ratio % Urine Color (Yellow) Urine Turbidity (Clear) Urine pH (5.0-7.0) Ur Specific [place] (1.003-1.030) Urine Protein (Negative) mg/dL Urine Glucose (UA) (Negative) mg/dL Urine Ketones (Negative) mg/dL Urine Blood (Negative) Urine Nitrite (Negative) Urine Bilirubin (Negative) Urine Urobilinogen (<2.0) mg/dL Ur Leukocyte Esterase (Negative) Urine WBC (Auto) (0.0-6.0) /HPF Urine RBC (Auto) (0.0-6.0) /HPF Urine Yeast (Budding) /HPF Urine HCG, Qual Negative (Negative) Blood Type O POSITIVE Antibody Screen Negative Crossmatch See Detail - Medical Decision Making macrobid given for uti given + nitrates in urine pt received 2 units PRBC prior to d/c case d/w [employer] will be d/fela with provera, iron, and f/u - Differential Diagnosis DUB, fibroids, , menorrhagia, anemia Critical Care Time: No Critical care attestation.: If time is entered above; I have spent that time in minutes in the direct care of this critically ill patient, excluding procedure time. ED Disposition Clinical Impression: DUB (dysfunctional uterine bleeding), Anemia, UTI (urinary tract infection) Disposition: - TO HOME OR SELFCARE Is pt being admited?: No Does the pt Need Aspirin: No Condition: Stable Instructions: Medroxyprogesterone (By mouth), Dysfunctional Uterine Bleeding (ED), Urinary Tract Infection in Women (ED), Anemia (ED) Additional Instructions: Take the medication as prescribed. Follow up with your doctor or the clini c/doctor provided. Return if symptoms worsen as indicated by your discharge instructions Prescriptions: Docusate Sodium [Colace CAP] 100 mg PO BID PRN #30 capsule PRN Reason: Constipation Ferrous Sulfate [Feosol 325 MG tab] 325 mg PO DAILY #30 tablet Nitrofurantoin [place]/M-Cryst [Macrobid CAP] 100 mg PO Q12HR #10 capsule Ibuprofen [Motrin] 800 mg PO Q8HR PRN #30 tablet PRN Reason: Pain , Severe (7-10) medroxyPROGESTERone ACETATE [Provera] 10 mg PO DAILY #10 tablet Referrals: [facility] [Provider Group] - 3-5 Days
[2018-12-27] MEDS ORDERED: NACL 0.9% 500 ML 500 ML ONE (05:24)
[2018-12-27 06:34] VITALS: BP 116/55
== END 2018-12-27 06:37 | disposition home or self-care (01) ==
LOC: ED 19:18
DX: D64.9 Anemia, unspecified (principal); N39.0 Urinary tract infection, site not specified; N93.8 Other specified abnormal uterine and vaginal bleeding; M79.642 Pain in left hand; F17.200 Nicotine dependence, unspecified, uncomplicated; M79.641 Pain in right hand; Z79.899 Other long term (current) drug therapy; Z90.89 Acquired absence of other organs
CPT/HCPCS: 36415; 36430; 80053; 81001; 81025; 85025; 86850; 86900; 86901; 86920; 99283; J7040; P9016

== ENCOUNTER 2018-12-31 18:09 | Emergency (ER) | payer SELFPAY ==
[2018-12-31 18:27] VITALS: BP 157/92
--- NOTE | 2018-12-31 18:27 | Event Note ---
ED Screening Note ED Screening Note: pt states she has N/V/D that began today after eating a steak biscuit out of a vending machine epigastric cramping no urinary sx LNMP: states her cycles last for a month PMHx none no allergies to meds This initial assessment/diagnostic orders/clinical plan/treatment(s) is/are subject to change based on patients health status, clinical progression and re- assessment by fellow clinical providers in the ED. Further treatment and workup at subsequent clinical providers discretion. Patient/guardian urged not to elope from the ED as their condition may be serious if not clinically assessed and managed. Initial orders include: labs, UA, urine preg
[2018-12-31 19:10] LABS: HCG Qualitative,Urine Negative (Negative)
[2018-12-31 19:19] LABS: Basophils % (Auto) 0.3 % (0.0-1.8); Eosinophils # (Auto) 1.2 K/mm3 (0.0-0.4); Eosinophils % (Auto) 6.5 % (0.0-4.3); Hematocrit 24.2 % (30.3-42.9); Hemoglobin 7.7 gm/dl (10.1-14.3); Lymphocytes # (Auto) 2.9 K/mm3 (1.2-5.4); Lymphocytes % (Auto) 16.3 % (13.4-35.0); Mean Corpuscular HGB Conc 32 % (30-34); Mean Corpuscular Volume 72 fl (79-97); Monocytes # (Auto) 1.2 K/mm3 (0.0-0.8); Monocytes % (Auto) 6.5 % (0.0-7.3); Platelet Count 333 K/mm3 (140-440); Red Blood Count 3.36 M/mm3 (3.65-5.03)
[2018-12-31 19:21] LABS: Bilirubin,Urine NEG (Negative); Blood,Urine LG (Negative); Color,Urine Yellow (Yellow); Mucus,Urine FEW /HPF
[2018-12-31 19:22] LABS: Red Cell Distribution Width 21.1 % (13.2-15.2)
[2018-12-31 19:46] LABS: Alanine Aminotransferase 12 units/L (7-56); Albumin 3.9 g/dL (3.9-5); BUN/Creatinine Ratio 7; Blood Urea Nitrogen 5 mg/dL (7-17); Calcium 9.2 mg/dL (8.4-10.2); Hemolysis Index 0
[2018-12-31] MEDS ORDERED: ZOFRAN ODT PO STA (20:57)
[2018-12-31] MEDS ORDERED: LEVSIN SL SL ONE (20:57)
--- NOTE | 2018-12-31 22:07 | Ultrasound Report ---
ULTRASOUND ABDOMEN, LIMITED (RIGHT UPPER QUADRANT) INDICATION: ruq pain. Right upper quadrant pain COMPARISON: None available. FINDINGS: Pancreas: Visualized portion shows no significant abnormality. Liver: Normal. Gallbladder: Normal. Bile ducts: Normal. Common Bile Duct measures 5 mm. Free fluid: None. Additional Findings: None. IMPRESSION: 1. No sonographic abnormality of the right upper quadrant. Signer Name: Erick Peña MD Signed: 12/31/2018 10:03 PM Workstation Name: [id number]
[2018-12-31] MEDS ORDERED: K-DUR PO STA (22:55)
--- NOTE | 2018-12-31 23:05 | Emergency Department Report ---
ED N/V/D HPI - General Chief complaint: Abdominal Pain Stated complaint: VOMITING Time Seen by Provider: 12/31/18 18:25 Source: patient Mode of arrival: Ambulatory Limitations: No Limitations - History of Present Illness Initial comments: 33-year-old female employee of [employer] consumed steak. This could've been the machine that showed develop nausea, diarrhea shortly followed. Stomach from to the upper abdomen and radiates to the right upper quadrant as well. No fever, chills, sweats, hemoptysis, hematemesis, hematochezia. MD complaint: nausea, vomiting -: Gradual, days(s) (1) Associated Abdominal Pain: Yes Radiation: none Severity: moderate Quality: cramping, stabbing Consistency: constant Worsens with: eating Context: possible food poisoning Associated Symptoms: nausea/vomiting. denies: chest pain, cough, diaphoresis, malaise, syncope, weakness - Related Data Previous Rx's Medication Instructions Recorded Last Taken Type Cyclobenzaprine [Flexeril] 10 mg PO TID PRN #30 tablet 12/05/16 Unknown Rx Naproxen [Naprosyn TAB] 500 mg PO BID PRN #30 tablet 12/05/16 Unknown Rx Cyclobenzaprine [Flexeril] 10 mg PO TID PRN #15 tablet 02/20/17 Unknown Rx Naproxen [Naprosyn TAB] 500 mg PO BID #30 tablet 02/20/17 Unknown Rx hydroCHLOROthiazide [HCTZ] 25 mg PO QDAY #30 tablet 02/20/17 Unknown Rx traMADol [Ultram 50 MG tab] 50 mg PO Q6HR PRN #10 tablet 06/20/17 Unknown Rx Docusate Sodium [Colace CAP] 100 mg PO BID PRN #30 capsule 12/27/18 Unknown Rx Ferrous Sulfate [Feosol 325 MG tab] 325 mg PO DAILY #30 tablet 12/27/18 Unknown Rx Ibuprofen [Motrin] 800 mg PO Q8HR PRN #30 tablet 12/27/18 Unknown Rx Nitrofurantoin [place]/M-Cryst 100 mg PO Q12HR #10 capsule 12/27/18 Unknown Rx [Macrobid CAP] medroxyPROGESTERone ACETATE 10 mg PO DAILY #10 tablet 12/27/18 Unknown Rx [Provera] Hyoscyamine Subl [Levsin Sl] 0.125 mg SL Q4HR PRN #16 tablet 12/31/18 Unknown Rx Ondansetron [Zofran ODT TAB] 8 mg PO Q12HR #14 tab.rapdis 12/31/18 Unknown Rx Allergies Allergy/AdvReac Type Severity Reaction Status Date / Time No Known Allergies Allergy Verified 12/31/18 18:11 ED Review of Systems ROS: Stated complaint: VOMITING Other details as noted in HPI Comment: All other systems reviewed and negative ED Past Medical Hx - Past Medical History Previous Medical History?: Yes Hx Sickle Cell Disease: No Hx Arthritis: Yes (HANDS) Hx HIV: No Additional medical history: Eczema - Surgical History Past Surgical History?: Yes Additional Surgical History: TONSILLECTOMY - Social History Smoking Status: Never Smoker Substance Use Type: None - Medications Home Medications: Home Medications Medication Instructions Recorded Confirmed Last Taken Type Cyclobenzaprine [Flexeril] 10 mg PO TID PRN #30 tablet 12/05/16 Unknown Rx Naproxen [Naprosyn TAB] 500 mg PO BID PRN #30 tablet 12/05/16 Unknown Rx Cyclobenzaprine [Flexeril] 10 mg PO TID PRN #15 tablet 02/20/17 Unknown Rx Naproxen [Naprosyn TAB] 500 mg PO BID #30 tablet 02/20/17 Unknown Rx hydroCHLOROthiazide [HCTZ] 25 mg PO QDAY #30 tablet 02/20/17 Unknown Rx traMADol [Ultram 50 MG tab] 50 mg PO Q6HR PRN #10 tablet 06/20/17 Unknown Rx Docusate Sodium [Colace CAP] 100 mg PO BID PRN #30 capsule 12/27/18 Unknown Rx Ferrous Sulfate [Feosol 325 MG tab] 325 mg PO DAILY #30 tablet 12/27/18 Unknown Rx Ibuprofen [Motrin] 800 mg PO Q8HR PRN #30 tablet 12/27/18 Unknown Rx Nitrofurantoin [place]/M-Cryst 100 mg PO Q12HR #10 capsule 12/27/18 Unknown Rx [Macrobid CAP] medroxyPROGESTERone ACETATE 10 mg PO DAILY #10 tablet 12/27/18 Unknown Rx [Provera] Hyoscyamine Subl [Levsin Sl] 0.125 mg SL Q4HR PRN #16 tablet 12/31/18 Unknown Rx Ondansetron [Zofran ODT TAB] 8 mg PO Q12HR #14 tab.rapdis 12/31/18 Unknown Rx ED Physical Exam - General Limitations: No Limitations General appearance: alert, in no apparent distress - Head Head exam: Present: atraumatic, normocephalic - Eye Eye exam: Present: normal appearance - ENT ENT exam: Present: mucous membranes moist - Neck Neck exam: Present: normal inspection - Respiratory Respiratory exam: Present: normal lung sounds bilaterally. Absent: respiratory distress - Cardiovascular Cardiovascular Exam: Present: regular rate, normal rhythm. Absent: systolic murmur, diastolic murmur, rubs, gallop - GI/Abdominal GI/Abdominal exam: Present: soft, tenderness (the plastic pain in her upper quadrant pain. No Lopez sign. No Rovsing sign, no Mitchell Hobbs, no [place], no tenderness at [place]), normal bowel sounds - Extremities Exam Extremities exam: Present: normal inspection - Back Exam Back exam: Present: normal inspection - Neurological Exam Neurological exam: Present: alert, oriented X3 - Psychiatric Psychiatric exam: Present: normal affect, normal mood - Skin Skin exam: Present: warm, dry, intact, normal color. Absent: rash ED Course Vital Signs 12/31/18 12/31/18 18:25 19:48 Temperature 98.9 F Pulse Rate 99 H 83 Respiratory 18 17 Rate Blood Pressure 157/92 [Right] O2 Sat by Pulse 100 99 Oximetry ED Medical Decision Making - Lab Data Result diagrams: 12/31/18 18:36 12/31/18 18:36 - Radiology Data Radiology results: report reviewed (negative ultrasound for) - Medical Decision Making Obese 33-year-old [place] female status post steak biscuit from a vending machine resulting in what appears to be gastroenteritis. Ultrasound showed a normal bladder evaluation. Her lipase is also normal and no evidence of any liver pathology and normal bili. She does have an elevated white count which could be secondary to stress margination or a developing gastro-enteritis, infectious process. Afebrile. No bloody stool. We'll treat conservatively and have him reevaluated in 24-4 Critical care attestation.: If time is entered above; I have spent that time in minutes in the direct care of this critically ill patient, excluding procedure time. ED Disposition Clinical Impression: Gastroenteritis Disposition: [id number] TO HOME OR SELFCARE Is pt being admited?: No Does the pt Need Aspirin: No Condition: Stable Instructions: Gastroenteritis (ED), Food Poisoning (ED), Abdominal Pain (ED) Additional Instructions: Pleads avoid vending machine meats. Presented here to the diet listed for the gastroenteritis [place] and fluids. Use the medication provided for cramping and nausea. The diarrhea and vomiting continue after 4 days. All you develop bloody diarrhea or vomiting, return to emergency department for reevaluation at which point in time, alternative treatment options may be warranted Prescriptions: Hyoscyamine Subl [Levsin Sl] 0.125 mg SL Q4HR PRN #16 tablet PRN Reason: Spasms Ondansetron [Zofran ODT TAB] 8 mg PO Q12HR #14 tab.rapdis Referrals: NELLY SHEEHAN MD [Primary Care Provider] - 3-5 Days
== END 2018-12-31 23:15 | disposition home or self-care (01) ==
LOC: ED 18:09
DX: K52.9 Noninfective gastroenteritis and colitis, unspecified (principal); R11.2 Nausea with vomiting, unspecified; Z79.1 Long term (current) use of non-steroidal anti-inflammatories (NSAID); Z79.899 Other long term (current) drug therapy; Z90.89 Acquired absence of other organs
CPT/HCPCS: 36415; 76705; 80053; 81001; 81025; 83690; 85025; 99284; Q0162

== ENCOUNTER 2021-01-15 08:30 | Emergency (ER) | payer SELFPAY ==
[2021-01-15 11:29] LABS: Hemoglobin 6.5 gm/dl (10.1-14.3); Mean Corpuscular Volume 63 fl (79-97); Red Blood Count 3.48 M/mm3 (3.65-5.03)
[2021-01-15 11:30] LABS: Basophils # (Auto) 0.1 K/mm3 (0.0-0.1); Basophils % (Auto) 0.4 % (0.0-1.8); Eosinophils # (Auto) 1.5 K/mm3 (0.0-0.4); Eosinophils % (Auto) 9.4 % (0.0-4.3); Lymphocytes # (Auto) 2.1 K/mm3 (1.2-5.4); Lymphocytes % (Auto) 13.3 % (13.4-35.0); Mean Corpuscular HGB Conc 30 % (30-34); Monocytes # (Auto) 0.9 K/mm3 (0.0-0.8); Monocytes % (Auto) 5.6 % (0.0-7.3); Platelet Count 303 K/mm3 (140-440); Red Cell Distribution Width 22.8 % (13.2-15.2)
--- NOTE | 2021-01-15 12:44 | Emergency Department Report ---
ED Female HPI - General Chief complaint: Vaginal Bleeding Stated complaint: VAGINAL BLEEDING X2 MONTHS Time Seen by Provider: 01/15/21 12:04 Source: patient Mode of arrival: Ambulatory Limitations: No Limitations - History of Present Illness Initial comments: 35-year-old female with known history of abnormal vaginal bleeding and irregular menstrual cycles presents to the ER today with complaints of bleeding for the past 2 months. Patient states that the bleeding started off around the time that her normal menstrual cycle would have started but it has persisted for the past 2 months. She states that the bleeding fluctuates between spotting and sometimes heavy. She reports associated lower abdominal cramping. She states that what concerned her today that she got dizzy. She states that she has been prescribed "a hormone" pill in the past for her abnormal bleeding. The last time she was on that particular hormone pill was beginning of October. She states that she had an pelvic ultrasound done by her [facility] in the beginning of October but she states that they did not find anything abnormal. She states that the "hormone pill" helps sometimes. She states that she has had blood transfusions in the past secondary to her anemia from the abnormal vaginal bleeding. The last time she had blood transfusion was in 2019. She denies any syncope or presyncopal episodes, chest pain, shortness of breath, nausea, vomiting, fever, chills or UTI symptoms. MD Complaint: vaginal bleeding -: month(s) (2-month) - Related Data Previous Rx's Medication Instructions Recorded Last Taken Type Cyclobenzaprine [Flexeril] 10 mg PO TID PRN #30 tablet 12/05/16 Unknown Rx Naproxen [Naprosyn TAB] 500 mg PO BID PRN #30 tablet 12/05/16 Unknown Rx Cyclobenzaprine [Flexeril] 10 mg PO TID PRN #15 tablet 02/20/17 Unknown Rx Naproxen [Naprosyn TAB] 500 mg PO BID #30 tablet 02/20/17 Unknown Rx hydroCHLOROthiazide [HCTZ] 25 mg PO QDAY #30 tablet 02/20/17 Unknown Rx traMADoL [Ultram 50 MG tab] 50 mg PO Q6HR PRN #10 tablet 06/20/17 Unknown Rx Docusate Sodium [Colace CAP] 100 mg PO BID PRN #30 capsule 12/27/18 Unknown Rx Ferrous Sulfate [Feosol 325 MG tab] 325 mg PO DAILY #30 tablet 12/27/18 Unknown Rx Nitrofurantoin [place]/M-Cryst 100 mg PO Q12HR #10 capsule 12/27/18 Unknown Rx [Macrobid CAP] medroxyPROGESTERone ACETATE 10 mg PO DAILY #10 tablet 12/27/18 Unknown Rx [Provera] Hyoscyamine Subl [Levsin Sl] 0.125 mg SL Q4HR PRN #16 tablet 12/31/18 Unknown Rx Ondansetron [Zofran ODT TAB] 8 mg PO Q12HR #14 tab.rapdis 12/31/18 Unknown Rx Ferrous Sulfate [Ferrous Sulfate 324 mg PO DAILY #30 tablet. 01/15/21 Unknown Rx 324 MG] Ibuprofen [Motrin] 600 mg PO Q8H PRN #30 tablet 01/15/21 Unknown Rx Allergies Allergy/AdvReac Type Severity Reaction Status Date / Time No Known Allergies Allergy Verified 12/31/18 18:11 ED Review of Systems ROS: Stated complaint: VAGINAL BLEEDING X2 MONTHS Other details as noted in HPI Comment: All other systems reviewed and negative Constitutional: denies: chills, fever Eyes: denies: eye pain, eye discharge, vision change ENT: denies: ear pain, throat pain Respiratory: denies: cough, shortness of breath, SOB with exertion, SOB at rest, wheezing Cardiovascular: denies: chest pain, palpitations, dyspnea on exertion, edema, syncope, paroxysmal nocturnal dyspnea Endocrine: no symptoms reported Gastrointestinal: denies: abdominal pain, nausea, diarrhea, constipation, hematemesis, melena, hematochezia Genitourinary: abnormal menses. denies: urgency, dysuria, frequency, hematuria, discharge, dyspareunia Musculoskeletal: denies: back pain, joint swelling, arthralgia, myalgia Skin: denies: rash, lesions, change in color, change in hair/nails Neurological: other (Dizzy). denies: headache, weakness, numbness, paresthesias, confusion, abnormal gait, vertigo Psychiatric: denies: anxiety, depression, auditory hallucinations, visual hallucinations, homicidal thoughts, suicidal thoughts Hematological/Lymphatic: denies: easy bleeding, easy bruising ED Past Medical Hx - Past Medical History Hx Sickle Cell Disease: No Hx Arthritis: Yes (HANDS) Hx HIV: No Additional medical history: Eczema - Surgical History Past Surgical History?: Yes Additional Surgical History: TONSILLECTOMY - Social History Smoking Status: Never Smoker Substance Use Type: None - Medications Home Medications: Home Medications Medication Instructions Recorded Confirmed Last Taken Type Cyclobenzaprine [Flexeril] 10 mg PO TID PRN #30 tablet 12/05/16 Unknown Rx Naproxen [Naprosyn TAB] 500 mg PO BID PRN #30 tablet 12/05/16 Unknown Rx Cyclobenzaprine [Flexeril] 10 mg PO TID PRN #15 tablet 02/20/17 Unknown Rx Naproxen [Naprosyn TAB] 500 mg PO BID #30 tablet 02/20/17 Unknown Rx hydroCHLOROthiazide [HCTZ] 25 mg PO QDAY #30 tablet 02/20/17 Unknown Rx traMADoL [Ultram 50 MG tab] 50 mg PO Q6HR PRN #10 tablet 06/20/17 Unknown Rx Docusate Sodium [Colace CAP] 100 mg PO BID PRN #30 capsule 12/27/18 Unknown Rx Ferrous Sulfate [Feosol 325 MG tab] 325 mg PO DAILY #30 tablet 12/27/18 Unknown Rx Nitrofurantoin [place]/M-Cryst 100 mg PO Q12HR #10 capsule 12/27/18 Unknown Rx [Macrobid CAP] medroxyPROGESTERone ACETATE 10 mg PO DAILY #10 tablet 12/27/18 Unknown Rx [Provera] Hyoscyamine Subl [Levsin Sl] 0.125 mg SL Q4HR PRN #16 tablet 12/31/18 Unknown Rx Ondansetron [Zofran ODT TAB] 8 mg PO Q12HR #14 tab.rapdis 12/31/18 Unknown Rx Ferrous Sulfate [Ferrous Sulfate 324 mg PO DAILY #30 tablet.dr 01/15/21 Unknown Rx 324 MG] Ibuprofen [Motrin] 600 mg PO Q8H PRN #30 tablet 01/15/21 Unknown Rx ED Physical Exam - General Limitations: No Limitations ED Course Vital Signs 01/15/21 01/15/21 01/15/21 09:51 16:08 17:05 Temperature 98.3 F 98.8 F 98.7 F Pulse Rate 100 H 88 81 Respiratory 18 16 18 Rate Blood Pressure 135/76 Blood Pressure 169/103 130/79 [Right] O2 Sat by Pulse 100 98 Oximetry 01/15/21 01/15/21 17:30 21:00 Temperature 98.7 F Pulse Rate 86 88 Respiratory 18 17 Rate Blood Pressure Blood Pressure 133/72 150/106 [Right] O2 Sat by Pulse 100 100 Oximetry ED Medical Decision Making - Lab Data Result diagrams: 01/15/21 10:24 01/15/21 12:28 - Medical Decision Making Labs reviewed -BC shows a leukocytosis with a white count of 15, but but after reviewing patient's previous labs she has chronic leukocytosis. Her hemoglobin today 6.5. Platelet count is normal. CMP shows elevated BS of 288 but otherwise unremarkable. Urinalysis normal. hCG is negative. Discussed case with Dr. Odonnell -he recommended transfusion of blood but just 1 unit since patient is symptomatic with complaints of feeling dizzy. 1600: Patient currently resting comfortably on the bed. She does not appear to be in acute distress. She is not toxic or ill-appearing. She is neurologically intact. Her repeat VS stable. Discussed lab results with patient and informed her that we are going to give 1 unit of packed red blood cells given her hemoglo bin of 6.5 and her complaints of feeling dizzy. I did discuss her blood sugar results with her, she stated that she does not have a history of diabetes in the last time she had anything to eat or drink was around 8 AM this morning. Patient has been here for about 7 hours, will get a fingerstick blood sugar while waiting. 1724: Patient currently receiving her 1 unit of packed red blood cells. Case turned over to Dr Odonnell to re-eval pt after transfusion. Pt will likely be discharge after blood transfusionas long as she remains stable. Critical care attestation.: If time is entered above; I have spent that time in minutes in the direct care of this critically ill patient, excluding procedure time. ED Disposition Clinical Impression: Symptomatic anemia, Abnormal vaginal bleeding Disposition: DC-01 TO HOME OR SELFCARE Is pt being admited?: No Does the pt Need Aspirin: No Condition: Stable Instructions: Abnormal Uterine Bleeding, Iron Deficiency Anemia, Pediatric Additional Instructions: It is important that you take the iron supplements as prescribed. It is impor tant that you also follow-up with my [facility]PLAY [facility]ATOR in the next 1-2 days for repeat labs and continue treatment of her abnormal bleeding. Your blood sugar was elevated today and so I recommend that you follow up with your PCP for continued monitoring of your blood sugar. Return to ED if your symptoms worsens or changes. Prescriptions: Ferrous Sulfate [Ferrous Sulfate 324 MG] 324 mg PO DAILY #30 tablet. Ibuprofen [Motrin] 600 mg PO Q8H PRN #30 tablet PRN Reason: Pain Referrals: [facility] [Provider Group] - 3-5 Days Forms: Work/School Release Form(ED) Time of Disposition: 17:23
[2021-01-15 14:30] LABS: Alanine Aminotransferase 11 units/L (7-56); Blood Urea Nitrogen 8 mg/dL (7-17); Calcium 9.1 mg/dL (8.4-10.2); Hemolysis Index 0
[2021-01-15 14:30] LABS: INR 1.01 (0.87-1.13)
[2021-01-15 14:31] LABS: Partial Thromboplastin Time 32.6 Sec. (24.2-36.6)
[2021-01-15] MEDS ORDERED: SODIUM CHLORIDE 0.9% 500 ML 500 ML IV ONE (14:32)
[2021-01-15 14:39] LABS: Mucus,Urine FEW /HPF
[2021-01-15 14:41] LABS: BUN/Creatinine Ratio 13
[2021-01-15 14:41] LABS: RBC,Urine > 182.0 /HPF (0.0-6.0); WBC,Urine < 1.0 /HPF (0.0-6.0)
[2021-01-15 14:42] LABS: Color,Urine Red (Yellow)
[2021-01-15 15:04] LABS: Ictotest,Urine Negative (Negative)
[2021-01-15 23:21] VITALS: BP 150/106
== END 2021-01-15 21:00 | disposition home or self-care (01) ==
LOC: ED 08:30
DX: D64.9 Anemia, unspecified (principal); N93.9 Abnormal uterine and vaginal bleeding, unspecified
CPT/HCPCS: 36415; 36430; 80053; 81001; 84702; 84703; 85025; 85610; 85730; 86850; 86900; 86901; 86920; 99283; P9016